=== PATIENT | male | born 2000 | race Caucasian/White ===

== ENCOUNTER 2022-06-30 04:33 | Emergency (ER) | payer OTHER ==
[~2022-06-30] VITALS: Ht 172.7 cm; Wt 70.0 kg
[2022-06-30 04:40] VITALS: BP 152/95
== END 2022-06-30 07:13 | disposition left against medical advice (07) ==
LOC: ER 04:33
DX: F41.9 Anxiety disorder, unspecified (principal)
CPT/HCPCS: 93005; 99283; Z7610